=== PATIENT | male | born 1985 | race Caucasian/White ===

== ENCOUNTER 2016-11-03 06:21 | Inpatient (IN) | payer MEDICAID, OTHER ==
[2016-11-03] VITALS (19 sets, daily range): BP systolic 110–139; BP diastolic 58–80; PULSE 68–106; RESP 17–18; TEMP 98.3; Ht 188 cm; Wt 12.5 kg
[~2016-11-03] VITALS: Ht 188 cm; Wt 12.5 kg
[2016-11-03] MEDS ORDERED: morphine 4 MG/ML VIAL IV STA ×2 (06:45→08:56)
[2016-11-03] MEDS ORDERED: ONDANSETRON 4 MG INJ IV STA (06:45)
[2016-11-03] MEDS ORDERED: LIDOCAINE 2% (SDV) 5 ML INJ ONE (07:00)
[2016-11-03] MEDS ORDERED: DESFLURANE 15 MIN ONE (07:00)
[2016-11-03] MEDS ORDERED: SUCCINYLCHOLINE CHLORIDE 100 MG/5 ML SYG IV ONE (07:00)
[2016-11-03 07:46] LABS: BASOPHIL # 0.1 10^3/ul (0.0-0.1); BASOPHILS % 0.4 % (0.0-2.0); EOSINOPHILS # 0.1 10^3/ul (0.0-0.5); EOSINOPHILS % 0.9 % (0.0-7.0); HEMATOCRIT 42.2 % (42.0-52.0); HEMOGLOBIN 14.2 g/dl (14.0-18.0); LYMPHOCYTES # 1.3 10^3/ul (0.8-2.9); LYMPHOCYTES % 10.8 % (15.0-51.0); MEAN CORPUSCULAR HEMOGLOBIN 28.1 pg (29.0-33.0); MEAN CORPUSCULAR HGB CONC 33.6 g/dl (32.0-37.0); MEAN CORPUSCULAR VOLUME 83.4 fl (82.0-101.0); MEAN PLATELET VOLUME 10.7 fl (7.4-10.4); MONOCYTE # 0.9 10^3/ul (0.3-0.9); MONOCYTES % 7.3 % (0.0-11.0); NEUTROPHIL # 9.9 10^3/ul (1.6-7.5); NEUTROPHILS % 80.1 % (39.0-77.0); PLATELET COUNT 279 10^3/UL (140-415); RED BLOOD COUNT 5.06 10^6/ul (4.70-6.10); RED CELL DISTRIBUTION WIDTH 13.4 % (11.5-14.5); WHITE BLOOD COUNT 12.4 10^3/ul (4.8-10.8)
[2016-11-03 07:54] LABS: ADD UMIC YES; UR ASCORBIC ACID NEGATIVE (NEGATIVE); UR BILIRUBIN (Dip) NEGATIVE (NEGATIVE); UR BLOOD (Dip) 1+ mg/dL (NEGATIVE); UR CLARITY CLEAR (CLEAR); UR COLOR STRAW (YELLOW); UR GLUCOSE (Dip) NEGATIVE (NEGATIVE); UR KETONES (Dip) NEGATIVE (NEGATIVE); UR LEUKOCYTE ESTERASE (Dip) NEGATIVE Leu/ul (NEGATIVE); UR NITRITE (Dip) NEGATIVE (NEGATIVE); UR RBC 0 /HPF (0-5); UR SPECIFIC GRAVITY (Dip) 1.006 (1.003-1.030); UR TOTAL PROTEIN (Dip) NEGATIVE (NEGATIVE); UR UROBILINOGEN (Dip) NEGATIVE (NEGATIVE)
[2016-11-03 08:08] LABS: ALBUMIN 4.4 g/dl (3.3-4.9); ALBUMIN/GLOBULIN RATIO 1.25; BILIRUBIN,INDIRECT 0.3 mg/dl (0-1.1); BILIRUBIN,TOTAL 0.3 mg/dl (0.2-1.3); CALCIUM 9.2 mg/dl (8.4-10.2); CREATININE 0.82 mg/dl (0.61-1.24); TOTAL PROTEIN 7.9 g/dl (6.1-8.1)
--- NOTE | 2016-11-03 08:30 | RADRPT ---
PROCEDURE: CT Abdomen and pelvis without contrast. CLINICAL INDICATION: Right lower quadrant abdominal pain TECHNIQUE: CT scan of the abdomen and pelvis without contrast was performed on a multidetector hig h-resolution CT scan. . Coronal and sagittal reformatted images were obtained from the axial [facility] e images. Standard CT scan of the abdomen pelvis without contrast protocols were performed. The total exam CTDI equals 22.33 mGy and the total exam DLP equals 1593.55 mGy-cm. One or more of the following dose reduction techniques were used: - Automated exposure control. - Adjustment of the mA and/or kV according to patient size. Use of iterative reconstruction technique. COMPARISON: None. FINDINGS: The appendix is dilated with a maximal diameter of approximately 1.2 cm with wall thickening and sli ght periappendiceal induration and stranding. These findings are consistent with early acute append icitis. No other evidence of abdominal free fluid. Negative for intra-abdominal free air or absces ses. Note there is a 2.5 cm mild annular narrowing of the distal sigmoid colon which may represent a ameya on spasm. A mass in this region cannot be totally excluded. Direct visualization is suggested for further evaluation. Remainder of the colon is unremarkable. The stomach and small bowel are unrema rkable. The kidneys are normal in size without calcified renal calculi or hydronephrosis bilaterally. There is a 3.5 cm cyst in the mid aspect of the right kidney. No other intra masses. The ureters and ur inary bladder are unremarkable. The liver spleen pancreas and adrenal glands are unremarkable. The gallbladder is unremarkable with out biliary ductal dilation. The aorta is unremarkable. The abdominal and pelvic murphy are unremarkable. The lung bases are rosalio ar. The osseous structures are unremarkable. IMPRESSION: 1. Dilated thick-walled appendix with slight periappendiceal induration and stranding consistent wi th early acute appendicitis. 2. Negative for intra-abdominal free air abscesses. 3. No calcified urinary calculi or hydronephrosis. 3.5 cm right mid renal cyst. 4. 2.5 cm mild annular narrowing of the distal sigmoid colon may represent a region of spasm howeve r a mass in this region cannot be excluded and direct visualization is suggested for further evaluat ion. RPTAT:AAJJ Kelton Zaragoza Physician Date Time Electronically viewed and signed by Kelton Zaragoza Physician on 11/03/2016 08:30 BM/
[2016-11-03] MEDS ORDERED: SOD CHLORIDE 0.9% 1,000 ML IV ONE ×2 (09:00)
[2016-11-03] MEDS ORDERED: PIPER-TAZO 3.375 GM IV (PMX) 100 ML IVPB ONE (09:00)
--- NOTE | 2016-11-03 09:41 | ERA ---
ER Documentation Chief Complaint Date/Time DATE: 11/03/16 TIME: 09:34 Chief Complaint CAME IN VIA INTAKE C/O ABDOMINAL PAIN HPI 31-year-old male came emergency room for right lower quadrant pain that began at 8:00 yesterday and is gotten progressively worse. He has not been able to eat today and has had nausea. He still has his appendix. He has had chills but has not felt feverish. ROS All systems reviewed and are negative except as per history of present illness. Allergies Allergies: Coded Allergies: No Known Allergy (Unverified , 11/03/16) PMhx/Soc History of Surgery: No Anesthesia Reaction: No Hx Neurological Disorder: No Hx Respiratory Disorders: No Hx Cardiac Disorders: No Hx Psychiatric Problems: No Hx Miscellaneous Medical Probl: No Hx Alcohol Use: No Hx Substance Use: No Hx Tobacco Use: No Smoking Status: Never smoker Physical Exam Vitals Vital Signs Date Time Temp Pulse Resp B/P Pulse Ox O2 Delivery O2 Flow Rate FiO2 11/03/16 06:24 98.3 73 18 124/71 100 Physical Exam Const: [] Mild to moderate distress Head: Atraumatic Eyes: Normal Conjunctiva ENT: Normal External Ears, Nose and Mouth. Neck: Full range of motion..~ No meningismus. Resp: Clear to auscultation bilaterally Cardio: Regular rate and rhythm, no murmurs Abd: Soft, right lower quadrant market tenderness without guarding or rebound , non distended. Normal bowel sounds Skin: No petechiae or rashes Back: No midline or flank tenderness Ext: No cyanosis, or edema Neur: Awake and alert and oriented 3, no focal deficit Psych: Normal Mood and Affect Result Diagram: 11/03/16 0657 11/03/16 0657 Results 24 hrs Laboratory Tests Test 11/03/16 06:57 White Blood Count 12.410^3/ul Red Blood Count 5.0610^6/ul Hemoglobin 14.2g/dl Hematocrit 42.2% Mean Corpuscular Volume 83.4fl Mean Corpuscular Hemoglobin 28.1pg Mean Corpuscular Hemoglobin Concent 33.6g/dl Red Cell Distribution Width 13.4% Platelet Count 20667^3/UL Mean Platelet Volume 10.7fl Neutrophils % 80.1% Lymphocytes % 10.8% Monocytes % 7.3% Eosinophils % 0.9% Basophils % 0.4% Nucleated Red Blood Cells % 0.0/100WBC Neutrophils # 9.910^3/ul Lymphocytes # 1.310^3/ul Monocytes # 0.910^3/ul Eosinophils # 0.110^3/ul Basophils # 0.110^3/ul Nucleated Red Blood Cells # 0.010^3/ul Urine Color STRAW Urine Clarity CLEAR Urine pH 6.0 Urine Specific [place] 1.006 Urine Ketones NEGATIVEmg/dL Urine Nitrite NEGATIVEmg/dL Urine Bilirubin NEGATIVEmg/dL Urine Urobilinogen NEGATIVEmg/dL Urine Leukocyte Esterase NEGATIVELeu/ul Urine Microscopic RBC 0/HPF Urine Microscopic WBC 0/HPF Urine Hemoglobin 1+mg/dL Urine Glucose NEGATIVEmg/dL Urine Total Protein NEGATIVEmg/dl Sodium Level 145mmol/L Potassium Level 4.0mmol/L Chloride Level 104mmol/L Carbon Dioxide Level 24mmol/L Anion Gap 21 Blood Urea Nitrogen 9mg/dl Creatinine 0.82mg/dl Glucose Level 94mg/dl Calcium Level 9.2mg/dl Total Bilirubin 0.3mg/dl Direct Bilirubin 0.00mg/dl Indirect Bilirubin 0.3mg/dl Aspartate Amino Transf (AST/SGOT) 24IU/L Alanine Aminotransferase (ALT/SGPT) 31IU/L Alkaline Phosphatase 56IU/L Total Protein 7.9g/dl Albumin 4.4g/dl Globulin 3.50g/dl Albumin/Globulin Ratio 1.25 Lipase 62U/L Current Medications Medications (Trade) Dose Ordered Sig/Kaykay Route PRN Reason Start Time Stop Time Status Last Admin Dose Admin Morphine Sulfate (morphine) 4 mg ONCE STAT IV 11/03/16 06:45 11/03/16 06:48 DC 11/03/16 07:02 Ondansetron HCl (Zofran Inj) 4 mg ONCE STAT IV 11/03/16 06:45 11/03/16 06:48 DC 11/03/16 07:02 Morphine Sulfate 4 mg 4 mg ONCE STAT IV 11/03/16 08:56 11/03/16 08:57 DC 11/03/16 09:11 Sodium Chloride 1,000 ml @ 1,000 mls/hr Q1H ONCE IV 11/03/16 09:00 11/03/16 09:59 11/03/16 09:11 Sodium Chloride 1,000 ml @ 1,000 mls/hr Q1H ONCE IV 11/03/16 09:00 11/03/16 09:59 Piperacillin Sod/ Tazobactam Sod (Zosyn 3.375gm/ 100 ml (Pmx)) 100 ml @ 200 mls/hr ONCE ONCE IVPB 11/03/16 09:00 11/03/16 09:29 DC Procedures/MDM Acute appendicitis. Patient is obese but otherwise a good surgical candidate. He was given morphine for his pain hydrated with 2 L of normal saline given Zosyn and coags were obtained. I called Dr. Heard who accepts the case as the general surgeon. Patient is being admitted to Dr. Cha. CT abdomen pelvis interpretation: Acute appendicitis with inflamed appendix with periappendiceal stranding and induration Departure Diagnosis: Primary Impression: Acute appendicitis Condition: Serious ADENIKE LUGO DO Nov 03, 2016 09:41
--- NOTE | 2016-11-03 09:44 | ERA ---
ER Documentation Chief Complaint Date/Time DATE: 11/03/16 TIME: 09:35 Chief Complaint CAME IN VIA INTAKE C/O ABDOMINAL PAIN HPI 31-year-old male is complaining of sudden onset right lower quadrant abdominal pain 4 hours. Pain is constant and sharp, increases with movement. Ibuprofen helped the pain slightly, but did not take the pain away. Denies fever or chills. Denies vomiting or diarrhea. Denies dysuria. Denies any past medical or surgical history. His last meal was at 5 AM today. ROS All systems reviewed and are negative except as per history of present illness. Allergies Allergies: Coded Allergies: No Known Allergy (Unverified , 11/03/16) PMhx/Soc Medical and Surgical Hx: pt denies Medical Hx History of Surgery: No Anesthesia Reaction: No Hx Neurological Disorder: No Hx Respiratory Disorders: No Hx Cardiac Disorders: No Hx Psychiatric Problems: No Hx Miscellaneous Medical Probl: No Hx Alcohol Use: No Hx Substance Use: No Hx Tobacco Use: No Smoking Status: Never smoker Physical Exam Vitals Vital Signs Date Time Temp Pulse Resp B/P Pulse Ox O2 Delivery O2 Flow Rate FiO2 11/03/16 06:24 98.3 73 18 124/71 100 Physical Exam General: Well-developed, well-nourished, conscious and coherent, in no distress Skin: Warm and dry without rash, good texture and turgor Head: Normocephalic without evidence of trauma Eyes: Sclera and conjunctivae normal; pupils equal, round, and reactive to light; extraocular movements are intact Chest: Normal AP diameter. Good expansion without retractions. Nontender. Lungs are clear to auscultate bilaterally with good tidal volume Heart: Regular rate and rhythm. No murmur, rub, or gallops heard Abdomen: Soft, no masses. Right lower quadrant tenderness with guarding, no rebound. Bowel sounds are active. No hepatosplenomegaly Back: Without spinal or CVA tenderness Extremities: Full range of motion. Good strength bilaterally. No clubbing, cyanosis, or edema. Peripheral pulses are intact. Sensation intact Neuro: Alert and oriented 4, GCS 15. Cranial nerves grossly intact. Motor and sensory exams nonfocal. Moves all extremities. Speech clear. Gait normal Result Diagram: 11/03/16 0657 11/03/16 0657 Results 24 hrs Laboratory Tests Test 11/03/16 06:57 White Blood Count 12.410^3/ul Red Blood Count 5.0610^6/ul Hemoglobin 14.2g/dl Hematocrit 42.2% Mean Corpuscular Volume 83.4fl Mean Corpuscular Hemoglobin 28.1pg Mean Corpuscular Hemoglobin Concent 33.6g/dl Red Cell Distribution Width 13.4% Platelet Count 40417^3/UL Mean Platelet Volume 10.7fl Neutrophils % 80.1% Lymphocytes % 10.8% Monocytes % 7.3% Eosinophils % 0.9% Basophils % 0.4% Nucleated Red Blood Cells % 0.0/100WBC Neutrophils # 9.910^3/ul Lymphocytes # 1.310^3/ul Monocytes # 0.910^3/ul Eosinophils # 0.110^3/ul Basophils # 0.110^3/ul Nucleated Red Blood Cells # 0.010^3/ul Urine Color STRAW Urine Clarity CLEAR Urine pH 6.0 Urine Specific [place] 1.006 Urine Ketones NEGATIVEmg/dL Urine Nitrite NEGATIVEmg/dL Urine Bilirubin NEGATIVEmg/dL Urine Urobilinogen NEGATIVEmg/dL Urine Leukocyte Esterase NEGATIVELeu/ul Urine Microscopic RBC 0/HPF Urine Microscopic WBC 0/HPF Urine Hemoglobin 1+mg/dL Urine Glucose NEGATIVEmg/dL Urine Total Protein NEGATIVEmg/dl Sodium Level 145mmol/L Potassium Level 4.0mmol/L Chloride Level 104mmol/L Carbon Dioxide Level 24mmol/L Anion Gap 21 Blood Urea Nitrogen 9mg/dl Creatinine 0.82mg/dl Glucose Level 94mg/dl Calcium Level 9.2mg/dl Total Bilirubin 0.3mg/dl Direct Bilirubin 0.00mg/dl Indirect Bilirubin 0.3mg/dl Aspartate Amino Transf (AST/SGOT) 24IU/L Alanine Aminotransferase (ALT/SGPT) 31IU/L Alkaline Phosphatase 56IU/L Total Protein 7.9g/dl Albumin 4.4g/dl Globulin 3.50g/dl Albumin/Globulin Ratio 1.25 Lipase 62U/L Current Medications Medications (Trade) Dose Ordered Sig/Kaykay Route PRN Reason Start Time Stop Time Status Last Admin Dose Admin Morphine Sulfate (morphine) 4 mg ONCE STAT IV 11/03/16 06:45 11/03/16 06:48 DC 11/03/16 07:02 Ondansetron HCl (Zofran Inj) 4 mg ONCE STAT IV 11/03/16 06:45 11/03/16 06:48 DC 11/03/16 07:02 Morphine Sulfate 4 mg 4 mg ONCE STAT IV 11/03/16 08:56 11/03/16 08:57 DC 11/03/16 09:11 Sodium Chloride 1,000 ml @ 1,000 mls/hr Q1H ONCE IV 11/03/16 09:00 11/03/16 09:59 11/03/16 09:11 Sodium Chloride 1,000 ml @ 1,000 mls/hr Q1H ONCE IV 11/03/16 09:00 11/03/16 09:59 Piperacillin Sod/ Tazobactam Sod (Zosyn 3.375gm/ 100 ml (Pmx)) 100 ml @ 200 mls/hr ONCE ONCE IVPB 11/03/16 09:00 11/03/16 09:29 PROCEDURE: CT Abdomen and pelvis without contrast. CLINICAL INDICATION: Right lower quadrant abdominal pain TECHNIQUE: CT scan of the abdomen and pelvis without contrast was performed on a multidetector high-resolution CT scan. . Coronal and sagittal reformatted images were obtained from the axial source images. Standard CT scan of the abdomen pelvis without contrast protocols were performed. The total exam CTDI equals 22.33 mGy and the total exam DLP equals 1593.55 mGy- cm. One or more of the following dose reduction techniques were used: - Automated exposure control. - Adjustment of the mA and/or kV according to patient size. Use of iterative reconstruction technique. COMPARISON: None. FINDINGS: The appendix is dilated with a maximal diameter of approximately 1.2 cm with wall thickening and slight periappendiceal induration and stranding. These findings are consistent with early acute appendicitis. No other evidence of abdominal free fluid. Negative for intra-abdominal free air or abscesses. Note there is a 2.5 cm mild annular narrowing of the distal sigmoid colon which may represent a region spasm. A mass in this region cannot be totally excluded. Direct visualization is suggested for further evaluation. Remainder of the colon is unremarkable. The stomach and small bowel are unremarkable. The kidneys are normal in size without calcified renal calculi or hydronephrosis bilaterally. There is a 3.5 cm cyst in the mid aspect of the right kidney. No other intra masses. The ureters and urinary bladder are unremarkable. The liver spleen pancreas and adrenal glands are unremarkable. The gallbladder is unremarkable without biliary ductal dilation. The aorta is unremarkable. The abdominal and pelvic murphy are unremarkable. The lung bases are clear. The osseous structures are unremarkable. IMPRESSION: 1. Dilated thick-walled appendix with slight periappendiceal induration and stranding consistent with early acute appendicitis. 2. Negative for intra-abdominal free air abscesses. 3. No calcified urinary calculi or hydronephrosis. 3.5 cm right mid renal cyst. 4. 2.5 cm mild annular narrowing of the distal sigmoid colon may represent a region of spasm however a mass in this region cannot be excluded and direct visualization is suggested for further evaluation. RPTAT:AAJJ Physician Yaakov Date Time Electronically viewed and signed by Kelton Zaragoza Physician on 11/03/2016 08:30 BM/ CC: JOSE CAMEJO NP Procedures/MDM Well-appearing 31-year-old male presented ED with right lower quadrant abdominal pain 4 hours. On exam, he has right lower quadrant tenderness with guarding, highly suspicious for acute appendicitis. Leukocytosis and neutrophilia as noted on CBC. CMP and lipase are negative. UA has 1+ hemoglobin, otherwise negative. CT abdomen and pelvis with IV contrast showed a dilated thick-walled appendix with slight periappendiceal induration and stranding consistent with early acute appendicitis. Patient given 2 doses of morphine 4 mg IV in the ED for pain. Normal saline 2 L bolus and Zosyn also given to the patient. Patient is turned over to Dr. Stern for admission. Departure Diagnosis: Primary Impression: Appendicitis Qualified Code: K35.80 - Acute appendicitis, unspecified acute appendicitis type Condition: Stable JOSE CAMEJO NP Nov 03, 2016 09:44
[2016-11-03] MEDS ORDERED: ACETAMINOPHEN 325 MG TAB PO PRN (10:00)
[2016-11-03] MEDS ORDERED: ONDANSETRON 4 MG INJ IV PRN ×3 (10:00→12:00)
[2016-11-03] MEDS ORDERED: BUPIVACAINE 0.25%/EPI (SDV) 10 ML INJ ONE (10:03)
[2016-11-03] MEDS ORDERED: CEFAZOLIN 1 GM INJ ONE (10:25)
[2016-11-03] MEDS ORDERED: GLYCOPYRROLATE 0.4 MG INJ ONE (10:25)
[2016-11-03] MEDS ORDERED: FENTAnyl 50 MCG/ML VIAL ONE ×2 (10:25→11:28)
[2016-11-03] MEDS ORDERED: ROCURONIUM 50 MG INJ ONE (10:25)
[2016-11-03] MEDS ORDERED: NEOSTIGMINE 3 MG/3 ML SYRINGE ONE (10:25)
[2016-11-03] MEDS ORDERED: DEXAMETHASONE 4 MG/ML 1 ML INJ ONE (10:25)
[2016-11-03] MEDS ORDERED: MIDAZOLAM 1 MG/ML 2 ML INJ ONE (10:25)
[2016-11-03] MEDS ORDERED: ONDANSETRON 4 MG INJ ONE (10:25)
[2016-11-03] MEDS ORDERED: PROPOFOL 20 ML ONE (10:25)
--- NOTE | 2016-11-03 10:35 | CONS ---
Date/Time of Note Date/Time of Note DATE: 11/03/16 TIME: 10:34 Assessment/Plan Assessment/Plan Additional Assessment/Plan [facility] INPATIENT CONSULTATION NOTE DATE OF SERVICE: 11/03/2016 PLACE OF SERVICE: [facility], preoperative area ASSESSMENT AND PLAN: A very-pleasant 31-year-old gentleman with comorbidity of BMI 34.9, presenting with acute appendicitis. I consented him for laparoscopic , possible open appendectomy. With above assessment, I've recommended the followin. To the OR for above Thank you very much for having me involved in the care of this very pleasant patient and wonderful family. If you have any questions, please feel free to contact me at [phone]. Nature of presenting problem: High severity Please note that, given the limited number of diagnoses or management options, the limited amount and/or complexity of data needed to be reviewed, and moderate to high risk of complications and/or morbidity or mortality, this qualifies as moderate complexity type of decision-making. Disclaimer: Inadvertent spelling and grammatical errors are likely due to EHR/ dictation software use and do not reflect on the quality of delivered patient care. Also, please note that the electronic time recorded on this node does not necessarily reflect the actual time of the visit. Updated clinical summary: A very-pleasant 31-year-old gentleman with comorbidity of BMI 34.9, presenting with acute appendicitis. Comorbidities: 1. BMI 34.9 2. Diabetes and hypertension in the father CONSULTATION REQUESTED BY: Dr. Stern HISTORY OF PRESENT ILLNESS: The patient is a very 31-year-old gentleman with comorbidity of BMI 34.9, presenting with acute appendicitis. Sharp, 10 out of 10, right lower quadrant abdominal pain without radiation started earlier today. Mild nausea no vomiting. No blood in the stool or urine. Had similar pain but less severe over the last 2 days and treated with ibuprofen. Workup demonstrated elevated white blood cell count and a CT scan that was positive. No other major problems or complaints. ALLERGIES: NO KNOWN DRUG ALLERGIES MEDICATIONS Documented in the electronic records and reviewed by me. Please see the electronic records for details, as well as details for inpatient medications which were also reviewed by me. SOCIAL HISTORY: The patient lives with family. 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 There are no other significant medical, surgical or oncologic issues in the family as reported by the patient or reflected in the chart. REVIEW OF SYSTEMS: Other than mentioned above, there were no other pertinent positives or pertinent negatives in an otherwise complete 14 point review of systems. PHYSICAL EXAMINATION GENERAL: The patient appears to be a very pleasant gentleman of descent lying in bed, appearing stated age, and otherwise in no acute distress. BMI: 34.9 VITAL SIGNS: AVSS (please also see auto important data if available as well as the electronic records) HEENT: Normocephalic and atraumatic. Extraocular muscles and hearing are grossly intact bilaterally and symmetrically. Sclerae are nonicteric. Oral cavity is clear; oral mucosa appear to be pink and moist. Dentition: fair. NECK: Supple. There is no lymphadenopathy or JVD. There is no submental, submandibular or supraclavicular lymphadenopathy. CHEST: Rises symmetrically with each breath; patient is breathing comfortably. There are no audible wheezes, rales or rhonchi on the gross exam. HEART: Pulse is regular and palpable on the right wrist. Capillary refill is normal. Carotid pulses are palpable bilaterally and symmetrically in the neck. EXTREMITIES: Lower extremities contain no pitting edema around the ankles bilaterally and symmetrically. ABDOMEN: Abdomen is soft, mild to moderately tender in the right lower quadrant and nondistended. No evidence of ascites, organomegaly, caput medusae , engorged subcutaneous veins, or other abnormalities. There are no peritoneal signs or guarding. SKIN: Appears to be pink and feels warm to touch. NEUROLOGIC: Awake, alert, and follows commands appropriately. LABORATORY DATA: See below IMAGING: See electronic chart. Please note that I've personally reviewed all pertinent available images and I agree in general with their overall reported findings. Consultation Date/Type/Reason Admit Date/Time Social History Smoking Status: Never smoker Exam/Review of Systems Vital Signs Vitals Vital Signs Date Time Temp Pulse Resp B/P Pulse Ox O2 Delivery O2 Flow Rate FiO2 11/03/16 09:30 98.3 76 20 115/78 100 Room Air Results Result Diagram: 11/03/16 0657 11/03/16 0657 Results 24 hrs Laboratory Tests Test 11/03/16 06:57 White Blood Count 12.4 H Red Blood Count 5.06 Hemoglobin 14.2 Hematocrit 42.2 Mean Corpuscular Volume 83.4 Mean Corpuscular Hemoglobin 28.1 L Mean Corpuscular Hemoglobin Concent 33.6 Red Cell Distribution Width 13.4 Platelet Count 279 Mean Platelet Volume 10.7 H Neutrophils % 80.1 H Lymphocytes % 10.8 L Monocytes % 7.3 Eosinophils % 0.9 Basophils % 0.4 Nucleated Red Blood Cells % 0.0 Neutrophils # 9.9 H Lymphocytes # 1.3 Monocytes # 0.9 Eosinophils # 0.1 Basophils # 0.1 Nucleated Red Blood Cells # 0.0 Urine Color STRAW Urine Clarity CLEAR Urine pH 6.0 Urine Specific [place] 1.006 Urine Ketones NEGATIVE Urine Nitrite NEGATIVE Urine Bilirubin NEGATIVE Urine Urobilinogen NEGATIVE Urine Leukocyte Esterase NEGATIVE Urine Microscopic RBC 0 Urine Microscopic WBC 0 Urine Hemoglobin 1+ H Urine Glucose NEGATIVE Urine Total Protein NEGATIVE Sodium Level 145 H Potassium Level 4.0 Chloride Level 104 Carbon Dioxide Level 24 Anion Gap 21 H Blood Urea Nitrogen 9 Creatinine 0.82 Glucose Level 94 Calcium Level 9.2 Total Bilirubin 0.3 Direct Bilirubin 0.00 Indirect Bilirubin 0.3 Aspartate Amino Transf (AST/SGOT) 24 Alanine Aminotransferase (ALT/SGPT) 31 Alkaline Phosphatase 56 Total Protein 7.9 Albumin 4.4 Globulin 3.50 H Albumin/Globulin Ratio 1.25 Lipase 62 SANDHYA BATISTA M.D. Nov 03, 2016 10:35
[2016-11-03] MEDS ORDERED: NACL 0.9% 3 ML SYG IV SCH (11:00)
[2016-11-03] MEDS ORDERED: morphine 4 MG/ML VIAL IV PRN (11:00)
[2016-11-03] MEDS ORDERED: ACETAMINOPHEN 650 MG SUPP PR PRN (11:00)
[2016-11-03] MEDS: SOD CHLORIDE 0.9% 1,000 ML IV SCH ×2 (11:30→19:30)
[2016-11-03 11:47] LABS: INR 1.07; PROTIME 13.9 Sec (12.2-14.2); PT RATIO 1.1
[2016-11-03 11:48] LABS: PARTIAL THROMBOPLASTIN TIME 32.4 Sec (25.0-35.0)
[2016-11-03] MEDS ORDERED: SUGAMMADEX SODIUM 200 MG/2 ML VIAL IV ONE (11:56)
[2016-11-03] MEDS ORDERED: FENTAnyl 50 MCG/ML VIAL IV PRN ×3 (12:00)
[2016-11-03] MEDS ORDERED: MEPERIDINE 25 MG INJ IV PRN (12:00)
[2016-11-03] MEDS ORDERED: MIDAZOLAM 1 MG/ML 2 ML INJ IV PRN (12:00)
[2016-11-03] MEDS ORDERED: IPRATROPIUM (NEB) 0.5 MG/2.5 ML AMP HHN PRN (12:00)
[2016-11-03] MEDS ORDERED: DIPHENHYDRAMINE 50 MG INJ IV PRN (12:00)
[2016-11-03] MEDS ORDERED: hydrALAzine 20 MG INJ IV PRN (12:00)
[2016-11-03] MEDS ORDERED: EPHEDrine SULFATE 50 MG/5 ML SYG IV PRN (12:00)
[2016-11-03] MEDS ORDERED: TRIMETHOBENZAMIDE 100 MG/ML VIAL IM PRN (12:00)
[2016-11-03] MEDS ORDERED: ALBUTEROL 0.083% (NEB) 2.5 MG/3 ML AMP HHN PRN (12:00)
[2016-11-03] MEDS ORDERED: HYDROmorphONE (0.2 MG/ML) 10ML SYG IV PRN ×3 (12:00)
[2016-11-03] MEDS ORDERED: OXYCODONE/ACETAMINOPHEN (5/325) TAB PO PRN ×2 (12:00)
[2016-11-03] MEDS ORDERED: LABETALOL HCL 20MG INJ IV PRN (12:00)
[2016-11-03] MEDS ORDERED: KETOROLAC 30 MG INJ ONE (12:03)
[2016-11-03] MEDS ORDERED: METOCLOPRAMIDE 10 MG INJ ONE (12:03)
[2016-11-03] MEDS: D5W-0.45 NACL + KCL 20 MEQ 1,000 ML IV SCH ×2 (12:11→22:11)
[2016-11-03] MEDS ORDERED: HYDROCODONE/APAP (5/325) TAB PO PRN ×2 (12:30)
[2016-11-03] MEDS ORDERED: NA PHOSPHATE/BIPHOS 133 ML ENEMA PR PRN (12:30)
[2016-11-03] MEDS ORDERED: HYDROmorphONE 1 MG/ML SYG IV PRN ×2 (12:30)
[2016-11-03] MEDS ORDERED: BISACODYL 10 MG SUPP PR PRN (12:30)
[2016-11-03] MEDS ORDERED: DOCUSATE SODIUM 100 MG CAP PO PRN (12:30)
--- NOTE | 2016-11-03 12:33 | OPR ---
Date/Time of Note Date/Time of Note DATE: 11/03/16 TIME: 12:33 Operative Report Operative\Procedure Findings [facility] INPATIENT OPERATIVE NOTE PLACE OF SERVICE: [facility] DATE OF SURGERY: 11/03/2016 PREOPERATIVE DIAGNOSIS: 1. Acute appendicitis 2. BMI 34.9 3. Diabetes and hypertension in the father POSTOPERATIVE DIAGNOSIS: 1. Acute appendicitis, pus in abdomen but no perforation 2. BMI 34.9 3. Diabetes and hypertension in the father OPERATION: 1. Laparoscopic appendectomy SURGEON: Sandhya Batista M.D. [employer] MACHINE OPERATOR: Sergio ANESTHESIA: General endotracheal tube anesthesia ANESTHESIOLOGIST: Lora Cunningham M.D. BRIEF SUMMARY: An otherwise uncomplicated laparoscopic appendectomy was performed with findings of non-perforated appendicitis. Updated clinical summary: A very-pleasant 31-year-old gentleman with comorbidity of BMI 34.9, presenting with acute appendicitis. Comorbidities: 1. BMI 34.9 2. Diabetes and hypertension in the father BRIEF HISTORY: The patient is a very pleasant. I met with the patient and counseled them regarding the possible options of treatment, and I strongly suggested a laparoscopic, possible open appendectomy. We reviewed the operation in detail as well as the risks, benefits, alternatives, and expected outcomes of this operation. After careful consideration of all the risks, benefits, and alternatives, the patient appeared to understand those risks and wished to proceed with surgery. For a detailed report of my consultation with patient, please refer to my separate consultation note. STATEMENT OF THE INFORMED CONSENT: The patient appeared to understand the risks of the operation to include, but not be limited to risk of postoperative pain and scar tissue, possible infection or bleeding requiring other interventions such as opening the wound, placement of drainage catheters, or other operative interventions; possible injury to surrounding to structures including bowel, bladder, bile duct, or blood vessels, or solid organs such as liver, kidney, or pancreas requiring other interventions or procedures; possible leakage of bowel from anastomotic sites or suture lines causing significant increase in morbidity and mortality and requiring multiple interventions including but not limited to, placement of drainage catheters, imaging studies, as well as operative interventions; possible other source of sepsis such as urinary tract infections or pneumonias, or other sources of potentially life threatening problems such as deep venous thrombus formation causing pulmonary embolism, myocardial arrhythmias and infarctions, and even . We also briefly discussed the potential need to receive blood products and their potential complications of blood transfusion reactions, transmission of infections, or other complications. After careful consideration of all their options, the patient appeared to understand and wished to proceed with surgery. DESCRIPTION OF PROCEDURE: After obtaining informed consent, the patient was brought into the operating room and was placed in a normal supine position, where successful general endotracheal tube anesthesia was performed. Intravenous access was already in place and intravenous antimicrobials had been appropriately chosen and dosed prior to the operation. The patient's abdominal skin was prepped and draped from the nipple line down to the level of the upper thighs in the usual sterile fashion. We then called a surgical time-out where the patient's identification, date of , nature of the operation, allergies , presence of intravenous antimicrobials, presence of needed equipment, and any other concerns were reviewed and agreed upon by all members of the operating room team. We then started the operation by placing a 5 mm skin incision in the left lower quadrant and then introduced a 5 mm [employer] trocar into the peritoneal space, visualizing all the layers of the abdominal wall as we entered. Note that there was no indication of any injury to underlying structures with our entry into the peritoneal space. We insufflated the abdominal cavity to a maximum pressure of 15 mmHg and again inspected the area of insertion and ensured no obvious injury to underlying structures prior to inspecting the abdominal cavity and showing mild amount of pus, and no bowel contents, or other abnormal features. We could not see the appendix very well. We, therefore, injected the future sites of our other trocars with 0.25% Marcaine with epinephrine and placed a 5 mm [employer] trocar into the midline suprapubic area, taking care not to injure the bladder. We also placed a 12 mm trocar in the umbilical midline area, all under direct visualization. With our instruments in place, we had excellent visualization and access to the right lower quadrant. We then identified the appendix, which was inflamed but had a normal base coming out of the cecum. I then went ahead and used judicious amount of cautery as well as mostly blunt dissection to circumferentially isolate the base of the appendix and then transected this using one firing of the white load of the Endo -GAB stapler. We also repeated the firing on the mesentery of the appendix and completely disconnected the organ from the colon, delivered this out through the 12 mm trocar site inside of an EndoCatch bag without having to enlarge the fascial defect as well as without contaminating the wound. The specimen was sent to Pathology for further analysis. We then ensured adequate hemostasis and bile stasis, removed all our equipment including the pneumoperitoneum from the abdominal cavity prior to closing the infraumbilical fascia with 1 figure-of- eight 0 Vicryl suture on a UR-6 needle, washing the wounds with copious amounts of normal saline, injecting the initial insertion point of the trocar with 0.25 % Marcaine with epinephrine, and then closing the skin using interrupted 4-0 Monocryl sutures. Light dressing was then applied. At the end of the operation, both the sponge count and needle count were reportedly correct x2. The patient tolerated the procedure without any reported complications. ESTIMATED BLOOD LOSS: Less than 10 mL. BLOOD OR BLOOD PRODUCT TRANSFUSIONS: None to my knowledge. SPECIMENS: 1. Appendix COMPLICATIONS: None. DISPOSITION: Recovery area. Disclaimer: Inadvertent spelling and grammatical errors are likely due to EHR/ dictation software use and do not reflect on the quality of delivered patient care. SANDHYA BATISTA M.D. Nov 03, 2016 12:33
--- NOTE | 2016-11-03 15:06 | HP ---
Date/Time of Note Date/Time of Note DATE: 11/03/16 TIME: 15:01 Assessment/Plan VTE Prophylaxis VTE Prophylaxis Intervention: ambulation, SCD's Assessment/Plan Assessment/Plan This is a 31-year-old male with no significant past medical history, who presented to the emergency room with a 1 day duration of abdominal pain. 1. Acute appendicitis-not perforated, status post lap appendectomy on 11/02/2016. -Continue IV fluids, broad-spectrum antibiotics antiemetics and pain medications PRN -Diet per surgery recommendation 2. Leukocytosis secondary to #1. Treatment as above. 3. Obesity. -Weight reduction and therapeutic lifestyle changes advised. We will also obtain lipid panel and A1c. Plan: Patient will be kept in house postoperatively. Follow-up with a.m. labs. Postoperative course per surgery. Approximately 60 minutes was spent on this history and physical. Case discussed with Dr. Cha. HPI/ROS Admit Date/Time Admit Date/Time Hx of Present Illness This is a 31-year-old obese [place] male with no significant past medical history , who presented to the emergency room with a 1 day duration of acute onset of abdominal pain. Patient did not have any nausea, vomiting, fever or chills. He denied any chest pain, shortness of breath, palpitation or other constitutional symptoms. Patient denied any upper or lower GI bleed episode.Initial workup showed acute appendicitis via CT abdomen. Patient also had elevated WBC 12,400 with mildly elevated sodium 145. Vital signs within acceptable range. Patient was given IV fluids, pain medications and IV Zosyn and a surgery consult was called and was taken to operating room emergently and underwent laparoscopic appendectomy. ROS A 12 point review of system was assessed and is negative other than what is mentioned in the HPI. PMH/Family/Social Past Medical History See HPI Past Surgical History See HPI Social History Denies alcohol, smoking or illicit drug use. Smoking Status: Never smoker Exam/Review of Systems Vital Signs Vitals Vital Signs Date Time Temp Pulse Resp B/P Pulse Ox O2 Delivery O2 Flow Rate FiO2 11/03/16 13:28 70 17 128/73 98 Nasal Cannula 2.0 11/03/16 12:19 98.2 Exam Exam General: Obese male, not in any acute distress . HEENT: Normocephalic, Atraumatic, No laceration or hematoma; Eyes: PEERL, Conjunctiva clear, Anicteric sclera Neck: Supple without any lymphadenopathy, nontender, no JVD, no carotid bruits, trachea midline, no thyromegaly Cardiac: S1, S2 auscultated, regular rhythm and rate, no mumurs or gallop Pulmonary: Normal respiratory effort. Chest clear to auscultation bilaterally, no adventitious breath sounds GI: With laparoscopic incision, site intact. Abdomen obese to inspection. Soft , non tender, non- distended, no masses, no rebound tenderness or guarding. Bowel sounds active on all four quadrants Genitourinary: Deferred Extremities: No cyanosis, clubbing, or edema. Pulses [2+] bilaterally. Full ROM on all four extremities. No focal weakness appreciated. Neurologic: Alert to person, place, time, and situation. Affect appropriate, intact sensation. Skin: Clean,dry, and intact. No ecchymosis, no rashes, or lesions Labs Result Diagram: 11/03/16 0657 11/03/16 0657 Medications Medications Current Medications Sodium Chloride (NS) 1,000 ml @ 125 mls/hr Q8H IV ; Start 11/03/16 at 11:30 Ondansetron HCl (Zofran Inj) 4 mg Q6H PRN IV NAUSEA AND/OR VOMITING; Start 11/03 at 11:00 Acetaminophen (Tylenol Supp) 650 mg Q6H PRN [place] PAIN LEVEL 1-3 OR FEVER; Start 11/03/16 at 11:00 Morphine Sulfate (morphine) 2 mg Q4H PRN IV SEVERE PAIN LEVEL 7-10; Start at 11:00 Famotidine 20 mg 20 mg Q12 IV ; Start 11/03/16 at 21:00 Piperacillin Sod/ Tazobactam Sod 100 ml @ 200 mls/hr Q6 IVPB ; Start 11/03/16 at 17:00 Potassium Chloride/Dextrose/ Sod Cl (D5-1/2ns + KCl 20 Meq) 1,000 ml @ 100 mls/ hr Q10H IV ; Start 11/03/16 at 12:11 Acetaminophen/ Hydrocodone Bitart (Fortun[place] (5/325)) 1 tab Q4H PRN PO PAIN LEVEL 4 -7; Start 11/03/16 at 12:30 Acetaminophen/ Hydrocodone Bitart (Fortun[place] (5/325)) 2 tab Q4H PRN PO PAIN LEVEL 7 -10; Start 11/03/16 at 12:30 Hydromorphone HCl (Dilaudid) 0.5 mg Q2 PRN IV PAIN; Start 11/03/16 at 12:30 Hydromorphone HCl (Dilaudid) 1 mg Q2 PRN IV PAIN; Start 11/03/16 at 12:30 Famotidine (Pepcid Iv) 20 mg DAILY IV ; Start 11/04/16 at 09:00 Enoxaparin Sodium (Lovenox) 40 mg DAILY SC ; Start 11/04/16 at 09:00 Docusate Sodium (Colace) 100 mg BID PO ; Start 11/05/16 at 09:00 Docusate Sodium (Colace) 100 mg BID PRN PO CONSTIPATION; Start 11/05/16 at 21:00 Bisacodyl (Dulcolax Supp) 10 mg Q12H [place] ; Start 11/05/16 at 12:00 Bisacodyl (Dulcolax Supp) 10 mg BID PRN [place] CONSTIPATION; Start 11/05/16 at 21:00 Sodium Biphosphate/ Sodium Phosphate (Fleet Enema) 133 ml Q12H [place] ; Start at 18:00 Sodium Biphosphate/ Sodium Phosphate (Fleet Enema) 133 ml BID PRN [place] CONSTIPATION; Start 11/05/16 at 21:00 DINORAH CORONADO NP Nov 03, 2016 15:06
[2016-11-03] MEDS: PIPER-TAZO 3.375 GM IV (PMX) 100 ML IVPB SCH (16:24)
[2016-11-03] MEDS: FAMOTIDINE 20 MG INJ IV SCH (20:43)
[2016-11-04] MEDS: PIPER-TAZO 3.375 GM IV (PMX) 100 ML IVPB SCH ×3 (01:38→13:07)
[2016-11-04 05:55] LABS: WHITE BLOOD COUNT 14.1 10^3/ul (4.8-10.8)
[2016-11-04 05:56] LABS: BASOPHILS % 0.1 % (0.0-2.0); HEMATOCRIT 45.3 % (42.0-52.0); HEMOGLOBIN 15.4 g/dl (14.0-18.0); LYMPHOCYTES # 0.8 10^3/ul (0.8-2.9); LYMPHOCYTES % 5.8 % (15.0-51.0); MEAN CORPUSCULAR HEMOGLOBIN 28.6 pg (29.0-33.0); MEAN PLATELET VOLUME 10.8 fl (7.4-10.4); MONOCYTE # 0.8 10^3/ul (0.3-0.9); MONOCYTES % 5.6 % (0.0-11.0); NEUTROPHIL # 12.3 10^3/ul (1.6-7.5); NEUTROPHILS % 87.6 % (39.0-77.0); PLATELET COUNT 310 10^3/UL (140-415); RED BLOOD COUNT 5.39 10^6/ul (4.70-6.10); RED CELL DISTRIBUTION WIDTH 13.2 % (11.5-14.5)
[2016-11-04 06:07] LABS: ALBUMIN 4.2 g/dl (3.3-4.9); ALBUMIN/GLOBULIN RATIO 1.16; BILIRUBIN,INDIRECT 0.4 mg/dl (0-1.1); BILIRUBIN,TOTAL 0.4 mg/dl (0.2-1.3); CALCIUM 9.1 mg/dl (8.4-10.2); CHOL/HDL RATIO 3.4 RATIO; CREATININE 0.76 mg/dl (0.61-1.24); PHOSPHORUS 2.5 mg/dl (2.5-4.9); POTASSIUM 4.2 mmol/L (3.5-5.1); TOTAL PROTEIN 7.8 g/dl (6.1-8.1)
[2016-11-04 06:34] LABS: THYROID STIMULATING HORMONE 0.955 MIU/L (0.465-4.680)
[2016-11-04 07:45] VITALS: BP 121/71; RESP 16
[2016-11-04] MEDS ORDERED: FAMOTIDINE 20 MG INJ IV SCH (09:00)
[2016-11-04] MEDS ORDERED: ENOXAPARIN 40 MG/0.4 ML SYG SC SCH (09:00)
[2016-11-04] MEDS: FAMOTIDINE 20 MG INJ IV SCH (09:00)
[2016-11-04] MEDS ORDERED: morphine 2 MG INJ IV PRN (12:00)
--- NOTE | 2016-11-04 12:05 | PN ---
Date/Time of Note Date/Time of Note DATE: 11/04/16 TIME: 12:03 Assessment/Plan VTE Prophylaxis VTE Prophylaxis Intervention: other Assessment/Plan Problems: (1) Status post laparoscopic appendectomy Onset Date: ~ 11/02/2016 Status: Acute Comment: He is recuperating nicely. I suspect he is approaching time of appropriate discharge. However I will defer this off to the consultative surgeon Dr. Gabriel Subjective 24 Hr Interval Summary Free Text/Dictation Patient reports he is feeling better. No fever chills or sweats no nausea vomiting Constitutional: no complaints Respiratory: no complaints Cardiovascular: no complaints Gastrointestinal: pain (Mild pain especially at the umbilical incision site otherwise no complaints) Exam/Review of Systems Vital Signs Vitals Vital Signs Date Time Temp Pulse Resp B/P Pulse Ox O2 Delivery O2 Flow Rate FiO2 11/04/16 07:45 98.2 79 16 121/71 99 11/03/16 13:28 Nasal Cannula 2.0 Intake and Output 11/03/16 11/03/16 11/04/16 15:00 23:00 07:00 Intake Total 2700 ml 325 ml 1600 ml Output Total 15 ml 215 ml Balance 2685 ml 110 ml 1600 ml Exam Constitutional: alert, oriented Respiratory: clear to auscultation, normal air movement Cardiovascular: nl pulses, regular rate and rhythm Gastrointestinal: nl liver, spleen, soft, tender (At surgical incision site) Results Result Diagram: 11/04/16 0449 11/04/16 0449 Results 24 hrs Laboratory Tests Test 11/04/16 04:49 White Blood Count 14.1 H Red Blood Count 5.39 Hemoglobin 15.4 Hematocrit 45.3 Mean Corpuscular Volume 84.0 Mean Corpuscular Hemoglobin 28.6 L Mean Corpuscular Hemoglobin Concent 34.0 Red Cell Distribution Width 13.2 Platelet Count 310 Mean Platelet Volume 10.8 H Neutrophils % 87.6 H Lymphocytes % 5.8 L Monocytes % 5.6 Eosinophils % 0.0 Basophils % 0.1 Nucleated Red Blood Cells % 0.0 Neutrophils # 12.3 H Lymphocytes # 0.8 Monocytes # 0.8 Eosinophils # 0.0 Basophils # 0.0 Nucleated Red Blood Cells # 0.0 Sodium Level 144 Potassium Level 4.2 Chloride Level 103 Carbon Dioxide Level 25 Anion Gap 20 H Blood Urea Nitrogen 6 L Creatinine 0.76 Glucose Level 120 Hemoglobin A1c 4.9 Calcium Level 9.1 Phosphorus Level 2.5 Magnesium Level 2.0 Total Bilirubin 0.4 Direct Bilirubin 0.00 Indirect Bilirubin 0.4 Aspartate Amino Transf (AST/SGOT) 24 Alanine Aminotransferase (ALT/SGPT) 30 Alkaline Phosphatase 60 Total Protein 7.8 Albumin 4.2 Globulin 3.60 H Albumin/Globulin Ratio 1.16 Triglycerides Level 77 Cholesterol Level 157 LDL Cholesterol, Calculated 96 HDL Cholesterol 46 Cholesterol/HDL Ratio 3.4 Thyroid Stimulating Hormone (TSH) 0.955 Medications Medications Current Medications Ondansetron HCl (Zofran Inj) 4 mg Q6H PRN IV NAUSEA AND/OR VOMITING; Start 11/03 at 11:00 Acetaminophen (Tylenol Supp) 650 mg Q6H PRN [place] PAIN LEVEL 1-3 OR FEVER; Start 11/03/16 at 11:00 Famotidine 20 mg 20 mg Q12 IV Last administered on 11/03/16 20:43; Admin Dose 20 MG; Start 11/03/16 at 21:00 Piperacillin Sod/ Tazobactam Sod (Zosyn 3.375gm/ 100 ml (Pmx)) 100 ml @ 200 mls /hr Q6 IVPB Last administered on 11/04/16 06:09; Admin Dose 200 MLS/HR; Start 11/03/16 at 17:00 Acetaminophen/ Hydrocodone Bitart ([place] (5/325)) 1 tab Q4H PRN PO PAIN LEVEL 4 -7; Start 11/03/16 at 12:30 Acetaminophen/ Hydrocodone Bitart ([place] (5/325)) 2 tab Q4H PRN PO PAIN LEVEL 7 -10; Start 11/03/16 at 12:30 Hydromorphone HCl (Dilaudid) 0.5 mg Q2 PRN IV PAIN; Start 11/03/16 at 12:30 Hydromorphone HCl (Dilaudid) 1 mg Q2 PRN IV PAIN; Start 11/03/16 at 12:30 Famotidine (Pepcid Iv) 20 mg DAILY IV Last administered on 11/04/16 09:04; Admin Dose 20 MG; Start 11/04/16 at 09:00 Enoxaparin Sodium (Lovenox) 40 mg DAILY SC Last administered on 11/04/16 09:07 ; Admin Dose 40 MG; Start 11/04/16 at 09:00 Docusate Sodium (Colace) 100 mg BID PO ; Start 11/05/16 at 09:00 Docusate Sodium (Colace) 100 mg BID PRN PO CONSTIPATION; Start 11/05/16 at 21:00 Bisacodyl (Dulcolax Supp) 10 mg Q12H [place] ; Start 11/05/16 at 12:00 Bisacodyl (Dulcolax Supp) 10 mg BID PRN [place] CONSTIPATION; Start 11/05/16 at 21:00 Sodium Biphosphate/ Sodium Phosphate (Fleet Enema) 133 ml Q12H [place] ; Start at 18:00 Sodium Biphosphate/ Sodium Phosphate (Fleet Enema) 133 ml BID PRN [place] CONSTIPATION; Start 11/05/16 at 21:00 Morphine Sulfate (morphine) 2 mg Q4H PRN IV SEVERE PAIN LEVEL 7-10; Start at 12:00 ADENIKE MURRELL MD Nov 04, 2016 12:05
[2016-11-04 14:18] VITALS: BP 119/61; RESP 16
--- NOTE | 2016-11-04 14:43 | PDOCDIS ---
Discharge Instructions DIAGNOSIS Discharge Diagnosis Acute appendicitis; obesity CONDITION Patient Condition: Fair HOME CARE INSTRUCTIONS: Diet Instructions: Reduced Calorie ACTIVITY: Activity Restrictions: Slowly Increase Activity FOLLOW UP/APPOINTMENTS Follow-up Plan Dr. Ilsa Gabriel in 1 week. Primary doctor in 3 weeks. ADENIKE MURRELL MD Nov 04, 2016 14:43
[2016-11-04] MEDS ORDERED: BISA10SU75 PR (14:45)
[2016-11-04] MEDS ORDERED: DOCU-216 PO (14:45)
[2016-11-04] MEDS ORDERED: HYDR-3498 PO (14:45)
--- NOTE | 2016-11-04 14:47 | DS ---
Date/Time of Note Date/Time of Note DATE: 11/04/16 TIME: 14:45 Discharge Summary Admission/Discharge Info Admit Date/Time Nov 03, 2016 at 12:39 Discharge Date/Time 11/04/2016 Discharge Diagnosis Acute appendicitis; obesity Patient Condition: Fair Consults Surgery; Dr. Gabriel Procedures Laparoscopic appendectomy; CT scan abdomen Hx of Present Illness This is a 31-year-old obese male with no significant past medical history , who presented to the emergency room with a 1 day duration of acute onset of abdominal pain. Patient did not have any nausea, vomiting, fever or chills. He denied any chest pain, shortness of breath, palpitation or other constitutional symptoms. Patient denied any upper or lower GI bleed episode.Initial workup showed acute appendicitis via CT abdomen. Patient also had elevated WBC 12,400 with mildly elevated sodium 145. Vital signs within acceptable range. Patient was given IV fluids, pain medications and IV Zosyn and a surgery consult was called and was taken to operating room emergently and underwent laparoscopic appendectomy. Hospital Course Patient was taken from the emergency room to the operating room successfully. He had a laparoscopic appendectomy performed fortunately without incident. He is now doing well recuperating and is stable for discharge home. He may return to full activity in 2 weeks with gradual increase in activity he is to follow- up with Dr. Gabriel in 1 week his rehabilitation potential is good he has no known communicable diseases Home Meds Active Scripts Docusate Sodium (Dok) 100 Mg Capsule, 100 MG PO BID for 10 Days, CAP Prov:ADENIKE MURRELL MD 11/04/16 Bisacodyl* (Bisacodyl*) 10 Mg Supp, [address] Q12H for 10 Days, SUPP Prov:ADENIKE MURRELL MD 11/04/16 Hydrocodone Bit-Acetaminophen (Hydrocodone Bit-APAP) 5-325MG Tablet, 1 TAB PO Q4H Y for PAIN LEVEL 4-7 for 7 Days, #20 TAB Prov:ADENIKE MURRELL MD 11/04/16 Primary Care Provider Care Physician No Primary Time spent on discharge: > 30 minutes Pending Labs Laboratory Tests Test 11/04/16 04:49 White Blood Count 14.110^3/ul (4.8-10.8) Red Blood Count 5.3910^6/ul (4.70-6.10) Hemoglobin 15.4g/dl (14.0-18.0) Hematocrit 45.3% (42.0-52.0) Mean Corpuscular Volume 84.0fl (82.0-101.0) Mean Corpuscular Hemoglobin 28.6pg (29.0-33.0) Mean Corpuscular Hemoglobin Concent 34.0g/dl (32.0-37.0) Red Cell Distribution Width 13.2% (11.5-14.5) Platelet Count 97061^3/UL (140-415) Mean Platelet Volume 10.8fl (7.4-10.4) Neutrophils % 87.6% (39.0-77.0) Lymphocytes % 5.8% (15.0-51.0) Monocytes % 5.6% (0.0-11.0) Eosinophils % 0.0% (0.0-7.0) Basophils % 0.1% (0.0-2.0) Nucleated Red Blood Cells % 0.0/100WBC (0.0-0.0) Neutrophils # 12.310^3/ul (1.6-7.5) Lymphocytes # 0.810^3/ul (0.8-2.9) Monocytes # 0.810^3/ul (0.3-0.9) Eosinophils # 0.010^3/ul (0.0-0.5) Basophils # 0.010^3/ul (0.0-0.1) Nucleated Red Blood Cells # 0.010^3/ul (0.0-0.0) Sodium Level 144mmol/L (135-144) Potassium Level 4.2mmol/L (3.5-5.1) Chloride Level 103mmol/L (97-110) Carbon Dioxide Level 25mmol/L (21-31) Anion Gap 20 (8-16) Blood Urea Nitrogen 6mg/dl (7-20) Creatinine 0.76mg/dl (0.61-1.24) Glucose Level 120mg/dl (70-220) Hemoglobin A1c 4.9% (0-5.9) Calcium Level 9.1mg/dl (8.4-10.2) Phosphorus Level 2.5mg/dl (2.5-4.9) Magnesium Level 2.0mg/dl (1.7-2.5) Total Bilirubin 0.4mg/dl (0.2-1.3) Direct Bilirubin 0.00mg/dl (0.00-0.20) Indirect Bilirubin 0.4mg/dl (0-1.1) Aspartate Amino Transf (AST/SGOT) 24IU/L (15-46) Alanine Aminotransferase (ALT/SGPT) 30IU/L (13-69) Alkaline Phosphatase 60IU/L (42-121) Total Protein 7.8g/dl (6.1-8.1) Albumin 4.2g/dl (3.3-4.9) Globulin 3.60g/dl (1.3-3.2) Albumin/Globulin Ratio 1.16 Triglycerides Level 77mg/dl (0-149) Cholesterol Level 157mg/dl (100-200) LDL Cholesterol, Calculated 96mg/dl HDL Cholesterol 46mg/dl (28-63) Cholesterol/HDL Ratio 3.4RATIO Thyroid Stimulating Hormone (TSH) 0.955MIU/L (0.465-4.680) ADENIKE MURRELL MD Nov 04, 2016 14:47
--- NOTE | 2016-11-04 20:21 | PN ---
Date/Time of Note Date/Time of Note DATE: 11/04/16 TIME: 14:20 Assessment/Plan Assessment/Plan Assessment/Plan [facility] Progress Note Date of Service: 11/04/2016 Place of service: [facility] 2 E. Today's Assessment & Plan: Overall stable and doing well. No indication for postoperative major complication or surgical site infection. No indication for acute surgical intervention. Discussed with patient and his . Answered all questions. With above assessment, I've recommended the following for today: 1. Discharge home 2. Discharge instructions "Please call [phone] if any of fever, nausea, vomiting, discharge from wound, wound redness, increase or sudden pain, blood in stool or vomit, or any other unusual signs or symptoms. Also, please call the same number in a few days to schedule an appointment for your follow up visit. Patient may remove dressings tomorrow. Showers OK starting tomorrow. No swimming , hot tub or bath for 2 weeks. No lifting more than 25 lbs for 8 weeks." Thank you again for your great care of this very pleasant patient and wonderful family. If there are any questions, please feel free to call me at [phone]. Nature of presenting problem: Moderate severity Please note that, given the limited number of diagnoses or management options, the moderate amount and/or complexity of data needed to be reviewed, and moderate to high risk of complications and/or morbidity or mortality, this qualifies as moderate complexity type of decision-making. Disclaimer: Inadvertent spelling and grammatical errors are likely due to EHR/ dictation software use and do not reflect on the quality of delivered patient care. Also, please note that the electronic time recorded on this node does not necessarily reflect the actual time of the visit. Updated clinical summary: A very-pleasant 31-year-old gentleman with comorbidity of BMI 34.9, presenting with acute appendicitis. Comorbidities: 1. Acute appendicitis, pus in abdomen but no perforation; status post laparoscopic appendectomy [facility] 11/03/2016 for nonperforated appendicitis but with mild pus in the abdominal cavity 2. BMI 34.9 3. Diabetes and hypertension in the father Subjective: No major events or complaints; no abd pain and under control with medications; no n/v/d; no sob or cp; + flatus; + BM and normal; + activity Objective: Vitals: See below I's & O's: See below Exam: GENERAL: On exam, the patient was lying in bed and appeared to be comfortable and in no acute distress. ABDOMEN: Soft, nontender and nondistended. Incision dressings are clean, dry and intact without any evidence of obvious underlying erythema, edema, discharge , or hernia. There are no peritoneal signs or guarding. SKIN: Skin appears to be pink and feels warm to touch. NEUROLOGIC: Patient is awake, alert, and follows commands appropriately. Labs: See below Exam/Review of Systems Vital Signs Vitals Vital Signs Date Time Temp Pulse Resp B/P Pulse Ox O2 Delivery O2 Flow Rate FiO2 11/04/16 14:18 98.4 91 16 119/61 99 11/03/16 13:28 Nasal Cannula 2.0 Intake and Output 11/03/16 11/03/16 11/04/16 15:00 23:00 07:00 Intake Total 2700 ml 325 ml 1600 ml Output Total 15 ml 215 ml Balance 2685 ml 110 ml 1600 ml Results Result Diagram: 11/04/16 0449 11/04/16 0449 SANDHYA BATISTA M.D. Nov 04, 2016 20:21
[2016-11-05] MEDS ORDERED: DOCUSATE SODIUM 100 MG CAP PO SCH (09:00)
[2016-11-05] MEDS ORDERED: BISACODYL 10 MG SUPP PR SCH (12:00)
[2016-11-05] MEDS ORDERED: NA PHOSPHATE/BIPHOS 133 ML ENEMA PR SCH (18:00)
[2016-11-05] MEDS ORDERED: DOCUSATE SODIUM 100 MG CAP PO PRN (21:00)
[2016-11-05] MEDS ORDERED: NA PHOSPHATE/BIPHOS 133 ML ENEMA PR PRN (21:00)
[2016-11-05] MEDS ORDERED: BISACODYL 10 MG SUPP PR PRN (21:00)
== END 2016-11-04 15:22 | disposition home or self-care (01) | DRG 343 ==
LOC: EDBD 06:21 → FTE 06:21 → SDS 10:00 → REC 12:39 → PP2 13:56
PROVIDERS: ADMIT Internal Medicine; ATTEND Internal Medicine
PROC: 0DTJ4ZZ Resection of Appendix, Percutaneous Endoscopic Approach (ICD-10-PCS; principal; 2016-11-03 10:30)
DX: K35.80 Unspecified acute appendicitis (principal); E66.01 Morbid (severe) obesity due to excess calories; Z68.35 Body mass index [BMI] 35.0-35.9, adult; D72.829 Elevated white blood cell count, unspecified
CPT/HCPCS: 36415; 74176; 80053; 80061; 81001; 83036; 83690; 83735; 84100; 84443; 85025; 85610; 85730; 88304; 96365; 96366; 96375; 96376; J0690; J1100; J1650; J1885; J2250; J2270; J2405; J2543; J2710; J2765; J3010; J3480; J7030; J7999

== ENCOUNTER 2016-11-22 11:01 | Outpatient (CLI) | payer SELFPAY ==
[~2016-11-22] VITALS: Ht 188 cm; Wt 124.5 kg
[~2016-11-22 11:01] MED LIST: BISA10SU75 PR; DOCU-216 PO; HYDR-3498 PO
[2016-11-22 11:21] VITALS: BP 117/65; PULSE 85; RESP 18; Ht 188 cm; Wt 124.5 kg
--- NOTE | 2016-11-22 12:48 | CONS ---
DATE OF SERVICE: 11/22/2016 SUBJECTIVE: The patient returns today after undergoing laparoscopic appendectomy at [facility] on 11/03/2016 for acute appendicitis. No major complaints. He had minor discomfort around his umbilicus yesterday. No fevers, nausea, vomiting, chills or problems with eating or bowel activity. OBJECTIVE: VITAL SIGNS: Afebrile. Vital signs are stable. ABDOMEN: On exam, the patient's abdomen is soft, nontender and nondistended. There is no peritoneal signs of guarding. His incisions are healing well without any evidence of erythema, edema, discharge or hernia. SKIN: His skin is pink and feels warm to touch. NEUROLOGIC: He is awake, alert and follows commands appropriately. IMPRESSION AND PLAN: A very pleasant 31-year-old gentleman presenting with acute appendicitis status post appendectomy at [facility] on 11/03/2016 for acute appendicitis. No indication of major postoperative complications or surgical site infections. At this time, the patient may be discharged to the care of his primary care physician. We also discussed extensively how to change his lifestyle to achieve a more healthier lifestyle and ways to achieve those. I answered all questions. The patient and his appear to understand and they agreed with the plans. With the above assessment, I have recommended the followin. Follow up with primary care physician. 2. Follow up with us p.r.n. 3. Pursue a healthy lifestyle. Thank you again for allowing us to participate in the care of this very pleasant gentleman and his wonderful family. If there are any questions, please feel free to contact me at . Dictated By: Erwin Gabriel MD /[email or web address] /Document#: [id number] ELIA
== END 2016-11-22 17:00 | disposition home or self-care (01) ==
LOC: HPC 11:01
PROVIDERS: ATTEND Transplant Surgery
DX: R10.33 Periumbilical pain (principal); K35.80 Unspecified acute appendicitis
CPT/HCPCS: G0463